=== PATIENT | female | born 1930 | race Caucasian/White ===

== ENCOUNTER 2016-07-22 16:32 | Inpatient (IN) | payer OTHER ==
[2016-07-22] MEDS ORDERED: D50W 25 GM/50 ML SYR IVP PRN (19:14)
[2016-07-22] MEDS ORDERED: ACETAMINOPHEN 325 MG TAB PO PRN (19:14)
[2016-07-22] MEDS ORDERED: ONDANSETRON 4 MG/2 ML VIAL IVP PRN (19:14)
--- NOTE | 2016-07-22 19:35 | GHP ---
[f rep st] HISTORY AND PHYSICAL DATE OF ADMISSION: 07/22/2016 CHIEF COMPLAINT: Chest pain and shortness of breath. HISTORY OF PRESENT ILLNESS: This is an 85-year-old female, with a history of nonobstructive coronar y artery disease by angiogram in 2009, diabetes, hypertension, hyperlipidemia, sick sinus syndrome w ith pacemaker, and obesity, who presented to [facility] today with chest pain and shor tness of breath. The patient states that after eating dinner last night she developed pain in her u pper back and a dull moderate pressure over her left chest. She denies any exacerbating or alleviat ing factors. It was associated with significant shortness of breath. The patient went to the emerg ency department today after her shortness of breath was not improving. Currently she is chest pain free. Her breathing has improved. PAST MEDICAL HISTORY: 1. Aortic stenosis. 2. Nonobstructive coronary artery disease by angiogram in 2009. 3. Diabetes mellitus. 4. Hyperlipidemia. 5. Hypertension. 6. Hypoxemia. 7. Pacemaker placement for sick sinus syndrome. 8. COPD. 9. Diverticulitis. 10. Chronic respiratory failure, on home O2. HOME MEDICATIONS: Reviewed, refer to [facility] for details. ALLERGIES: No known drug allergies. SOCIAL HISTORY: She denies any alcohol, tobacco, or illicit drug use. FAMILY HISTORY: Significant for arrhythmia in her mother. REVIEW OF SYSTEMS: A comprehensive 10-point review of systems was done and is negative, except for as mentioned in HPI. PHYSICAL EXAM: VITAL SIGNS: Blood pressure 159/54, pulse 66, respiratory rate 16, O2 saturation 10 0% on 3 L, temperature afebrile. GENERAL: In no acute distress. HEENT: Head normocephalic, atrau matic. Eyes are PERRLA, sclerae anicteric. Mouth, moist mucous membranes. NECK: Supple, no lymph adenopathy. CARDIOVASCULAR: S1, S2. There is a systolic murmur, right upper sternal border, 4/6. There is no JVD. PULMONARY: Lungs are clear. No wheezes, rales, or rhonchi. There are slight de creased breath sounds in bilateral bases. ABDOMEN: Soft, nontender, nondistended, no guarding or r ebound tenderness. Normoactive bowel sounds. EXTREMITIES: No clubbing or cyanosis. NEUROLOGIC: Cranial nerves II-XII grossly intact. No focal motor or sensory deficits. SKIN: Clear, no rashes. LABORATORY DATA: Diagnostics were reviewed that were done at [facility]. Sodium 145, potassium 4.1, chloride 101, CO2 of 29, BUN 18, creatinine 1.2, glucose 143, WBC is 8.8, hemoglobin 11.8, hematocrit 36.3, platelets 376. A troponin collected at 1514 on July 22, 2016 was less than 0.050. EKG that was done at an outside facility was visualized, and personally interpreted by myself, sinus rhythm, rate at 63 beats per minute. There is no ST-segment elevation or depression. A chest x-ray was done, however, I do not have the report of this. Preliminary report by the emerge ncy room physician revealed cardiomegaly with left basilar effusion and atelectasis versus consolida tion at the left base. ASSESSMENT AND PLAN: 1. This is an 85-year-old female, with known nonobstructive coronary artery disease, as well as mul tiple other risk factors for acute coronary syndrome, including diabetes, hypertension, dyslipidemia , who presents with chest pain that started last night and has since resolved. Plan: The patient w ill be placed on observation where we will cycle her troponin. I discussed the case with Myriam stark, from [facility], who will see her in consultation. 2. History of aortic stenosis with a systolic heart murmur. Plan: We will defer further workup to Cardiology. 3. History of diabetes mellitus. Plan: Continue home medications and monitor. 4. Acute on chronic respiratory failure. Plan: We will obtain a D-dimer since it does not appear like one was done at [facility], and consider further chest imaging as indicated. 5. We will also add a BNP to her workup, given her left-sided effusion and possible consolidation s een on her chest x-ray done at [facility]. /[id number]/MODL
[2016-07-22] MEDS ORDERED: OLOPATADINE 0.1% 5 ML OPHT.BTL EACHEYE SCH (21:00)
[2016-07-22] MEDS ORDERED: INSULIN GLARGINE 100 UNITS/ML SYRINGE SC SCH (21:00)
[2016-07-22] MEDS: OLOPATADINE 0.1% 5 ML OPHT.BTL EACHEYE SCH (21:43)
[2016-07-22] MEDS: LOSARTAN POTASSIUM 50 MG TAB PO SCH ×2 (21:44→21:50)
[2016-07-22] MEDS: NEBIVOLOL HCL 5 MG TAB PO SCH (21:44)
[2016-07-22] MEDS: BRIMONIDINE 0.1% 5 ML OPHT.BTL EACHEYE SCH (22:22)
[2016-07-22 23:52] LABS: TROPONIN I < 0.012 ng/mL (0-0.034)
[2016-07-23 05:00] LABS: % IMMATURE GRANULYOCYTES 0.4 % (0.0-1.1); ABSOLUTE IMMATURE GRANULOCYTES 0.03 10^3/uL (0.00-0.10); ADD DIFF? NO; ADD MORPH? NO; ADD SCAN? NO; ATYPICAL LYMPHOCYTE FLAG 0 (0-99); FRAGMENT RBC FLAG 0 (0-99); HEMATOCRIT 33.1 % (38.0-47.0); HEMOGLOBIN 10.6 g/dL (12.6-16.3); LEFT SHIFT FLG 10 (0-99); LIPEMIA HEMOLYSIS FLAG 80 (0-99); MEAN CELL VOLUME 93.8 fL (81.5-99.8); MEAN PLATELET VOLUME 9.9 fL (8.7-11.7); PLATELET CLUMPS FLAG 10 (0-99); PLATELET COUNT 295 10^3/uL (150-400); RED BLOOD CELL COUNT 3.53 10^6/uL (4.18-5.33); RED CELL DISTRIBUTION WIDTH 12.9 % (11.5-15.2)
[2016-07-23 05:29] LABS: ANION GAP 9 mEq/L (8-16); CARBON DIOXIDE 30 mEq/l (22-31); CHLORIDE 106 mEq/L (97-110); CREATININE 1.2 mg/dL (0.6-1.0); GLOMERULAR FILTRATION RATE 43; GLUCOSE 99 mg/dL (70-100); POTASSIUM 3.8 mEq/L (3.5-5.2); SODIUM 145 mEq/L (134-144)
[2016-07-23 05:38] LABS: TROPONIN I < 0.012 ng/mL (0-0.034)
[2016-07-23] MEDS: INSULIN LISPRO 100 UNIT/ML SC SCH ×3 (07:59→16:51)
[2016-07-23] MEDS: DILTIAZEM 60 MG TAB PO SCH (08:17)
[2016-07-23] MEDS: NATEGLINIDE 120 MG TAB PO SCH ×3 (08:17→17:21)
[2016-07-23] MEDS: ASPIRIN 81 MG CHEWABLE TAB PO SCH (08:18)
[2016-07-23] MEDS: MULTIVITAMINS 1 EACH TAB PO SCH (08:18)
[2016-07-23] MEDS: FUROSEMIDE 40 MG TAB PO SCH (08:19)
[2016-07-23] MEDS: CHOLECALCIFEROL VIT D3 2,000 UNITS TAB/CAP PO SCH (08:19)
[2016-07-23] MEDS: BRIMONIDINE 0.1% 5 ML OPHT.BTL EACHEYE SCH ×2 (08:22→21:00)
[2016-07-23] MEDS: OLOPATADINE 0.1% 5 ML OPHT.BTL EACHEYE SCH ×2 (08:45→21:17)
[2016-07-23] MEDS ORDERED: ASPIRIN EC 81 MG TAB PO SCH (09:00)
[2016-07-23] MEDS ORDERED: Herbals/Supplements -Info Only PO SCH (09:00)
--- NOTE | 2016-07-23 13:52 | GCON ---
[ rep st] CONSULTATION HISTORY OF PRESENT ILLNESS: I have been asked to do cardiovascular consultations on the patient for her shortness of breath. The patient is a very pleasant woman who has been having more shortness of breath than usual. She has interstitial lung disease and sees the pulmonary service, but for 3 to 4 days, she said she has had more shortness of breath. It has been particularly worse if she takes off her oxygen. She had some episodes where she felt like she really could not breathe very well on Wednesday and Wednesday, and now has finally come to the hospital on . The shortness of breath will come and go. She also has a diffuse chest discomfort that is at the sternal area up into the right chest and over to the left chest. It moves around, it is not exertional, it is not relieved with rest. It comes and goes when it wants to. It is not related to food or nausea, there are no associated symptoms of lightheadedness, dizziness, diaphoresis. This pain that she has is not pleuritic in nature. It is usually pretty brief is what she told me. She is a little insecure in her description of her symptoms and recommended that I speak to her daughter when her daughter eventually gets here, which I will be glad to do, and look forward to doing. What she told when she came into the hospital, to the admitting doctor, was that she had some pain in her upper back and some pressure in her left chest. When I talked to her, she said she just had some discomfort, not really pressure, into the left and right chest, but has no back pain. She was seen at [facility] and then made her way to [facility]. I am not sure exactly what happened, in terms of moving from 1 place to the other. She says she does not have fever, chills, or cough. She has a pulmonary appointment and sees her pulmonary doctors. She does not have childhood asthma. She does not have sputum production right now, she does, at times, have a chronic cough. She has no rashes, stiff neck, photophobia. She has not had nausea, vomiting or diarrhea. She has not had trauma of the head, neck, or chest recently. She has not had syncope or near syncope. She has no significant peripheral edema, or weight gain, or appetite loss. She has been taking her medications and doing a good job of trying to be very healthy and taking care of herself. CARDIAC RISK FACTORS: Positive for hypertension, diabetes mellitus, hyperlipidemia, obesity. Her cardiac risk factors are negative for hyperuricemia, known coronary disease, prior myocardial infarction, family history of premature coronary artery disease, or smoking history. PAST MEDICAL HISTORY: She has a coronary angiogram in 2009, which showed no high-grade stenosis at that time. She has a history of aortic stenosis and aortic regurgitation on her echocardiographic studies. She has a history of pulmonary hypertension and interstitial lung disease. She has diabetes mellitus , as noted above. She is overweight, as noted above. She has dyslipidemia. She has hypertension. SURGICAL HISTORY: Pacemaker for sick sinus syndrome. ALLERGIES: None. MEDICATIONS: Listed and not repeated. SOCIAL HISTORY: She was born in the [facility]. She lives with her , whom she has been with a long time, and who has had a big accident with a bleed in his brain, it sounds like, from what she is trying to describe to me. She is not exactly sure what to say the diagnosis was, but the net result is that he does not understand anything and can't communicate well, so her daughter has moved in. The daughter lives in [place] and the daughter is trying to get the family to think about moving closer to where the daughter lives. The patient herself tries to walk around, but she is limited by her lung disease. She is using oxygen at home. She does not smoke. She does not drink significant amounts of alcohol. PHYSICAL EXAMINATION: VITAL SIGNS: Blood pressure is 121/56 today, it was 148 when she came in, and then 172 this morning, and then 172 on repeat this morning. Her heart rate is 60. She has a pacemaker in place. Respiratory rate is 14 and is unlabored. She is afebrile. HEAD AND NECK: No tenderness or trauma. CARDIOVASCULAR: S1, S2, systolic ejection murmur 2nd right intercostal space up into the neck without delay or carotid upstroke. There is a distinct systolic flow murmur at the left lower sternal border. There is no S3, S4 or rubs present. She is regular. RESPIRATORY: Pulmonary exam reveals rhonchi bilaterally. No rales, wheezing, or dullness. ABDOMEN: Soft, nontender, without masses. CVA shows no tenderness. SKIN: Shows age-related changes. As I said, the pacemaker is in the left upper chest. NEUROLOGIC: Cranial nerves 2-12 are grossly intact. PSYCH: No obvious anxiety or depression. SKIN: Shows age-related changes. DIAGNOSTIC AND LABORATORY DATA: Her EKG notes a chest x-ray we do not have a copy of. Her sodium is 145, potassium 4.1, chloride 101, CO2 29, BUN 18, creatinine 1.2, glucose 143. White count 8.8, hematocrit 36.3, and platelets 376. Original troponin was less than 0.05. I cannot find her EKG right now. I guess it came over from [place] and is not available. We will keep looking for this, as well as order another EKG today. Same thing is true of the chest x -ray, it is not available to be observed right now, but is supposedly coming either in person or in report form. On 07/23, white count is 7.29, hematocrit is 33.1. D-dimer is 3.23, which is elevated and 2nd troponin is back at 0.012, which is negative and the BNP is 1650. ASSESSMENT AND PLAN: 1. Aortic stenosis. 2. Aortic insufficiency. 3. Shortness of breath. 4. Interstitial lung disease. 5. Coronary artery disease. 6. Elevated BNP. 7. Abnormal elevated D-dimer. 8. Hypertension. 9. Diabetes mellitus. 10. Dyslipidemia. 11. Social stressors due to her who is incapacitated after recent central nervous system bleed of some great significance. This is obviously very difficult for her. 12. Sick sinus syndrome with pacemaker. 13. We know she has coronary artery disease. 14. In 01/2010, her LAD showed a 60% eccentric aneurysmal lesion. The rest of her LAD had multiple, less than 15%, stenosis. Circumflex had no high-grade disease, and the right coronary was a small vessel. 15. We know that she has significant lung disease, as well, and she is being treated for that. 16. At this point in time, her D-dimer is elevated. I would recommend that we rule out pulmonary embolic disease first, and then we can look further for coronary disease, or worsening of her valvular heart disease. We will get an echocardiographic study. It does not appear that she has any significant aortic stenosis at this time. She does not have delayed carotid upstroke at all. We will watch her very closely. She does have moderate to severe aortic regurgitation. We will see if that has changed. With all this valvular heart disease, we always want to think about endocarditis , but there is nothing in her story that makes me think that is active in her current presentation. She may well have worsened heart failure at this time. I would repeat a chest x-ray unless we make a diagnosis of pulmonary embolic disease, rather than wait any longer to get the results from [facility]. If she has pulmonary embolic disease, we do not need to get further chest x-ray at this time. We can just treat her for pulmonary embolic disease and watch her closely. Will see what the echocardiographic study shows. She also could quite possibly have advanced coronary artery disease. If we are not sure what is going on, at some point, we could do a coronary angiogram and see if her significant left anterior descending lesion has gotten significantly worse. That angiogram was over 7 years ago and she has major risk factors for coronary artery disease, including her obesity, diabetes, hyperlipidemia, hypertension on top of the fact that we already know she has coronary disease. We will follow her closely with you. /[id number]/MODL MTDD
[2016-07-23] MEDS ORDERED: IOPAMIDOL (ISOVUE 370) 100 ML BTL IV ONE (14:15)
--- NOTE | 2016-07-23 14:58 | ECHO ---
[id number] + + [address] : : [place] [address] : : [phone] + Adult Echocardiographic Report + ------+ :Name: MARGOTH KOEHLER VStudy Date: 07/23/2016 01:47 PM : : Hospital Admission Number: [id number] Locatio n: 232: :: 1930 Gender: Female Height: 58 in : :Age: 85 yrs Race: WH Weight: 128 lb : :Reason For Study: Eval LV Fx : : BSA: 1.5 meters 2 : :History: SOB : + ------+ MMode/2D Measurements \T\ Calculations IVSd: 0.87 cm LVIDd: 5.4 cm FS: 38.8 % MV Diam: 3.0 cm LVPWd: 0.90 cm LVIDs: 3.3 cm EDV(Teich): 140.3 ml ESV(Teich): 43.9 ml EF(Teich): 68.7 % Ao root diam: 3.2 cm LVOT diam: 1.9 cm ACS: 0.94 cm LVOT area: 2.8 cm2 Normal Measurement Values: + + :LVIDd (3.5-5.7cm) IVSd (0.6-1.1cm) LVPWd (0.6-1.1cm) Aortic Root (2.0-3.7cm)Left Atrium (1.5-4.0cm): :LV Vol(d) (76-115ml) LV Vol(s) (29-48ml) Ejec Fraction (50-65%)PV Mitch (0.6- 1.2m/s) TV Mitch (0.4-1.0m/s) : :MV E Mitch (0.8-1.0m/s)MV A Mitch (0.3-1.0m/s)LVOT Mitch (0.7-1.2m/s) Asc Ao Mitch ( 0.9-1.8m/s) : + + Doppler Measurements \T\ Calculations MV E max mitch: MV V2 mean: MV P1/2t max mitch: Ao V2 max: 155.5 cm/sec 107.6 cm/sec 158.8 cm/sec 256.5 cm/sec MV A max mitch: MV mean PG: MV P1/2t: 114.3 msec Ao max P.1 cm/sec 4.9 mmHg 26.3 mmHg MV E/A: 1.0 MV V2 VTI: 67.1 cm MVA(P1/2t): 1.9 cm2 Ao mean PG: MV dec time: MV area (1 diam): MV dec slope: 13.2 mmHg 0.42 sec 406.9 cm/sec2 Ao V2 mean: 7.1 cm2 162.4 cm/sec MVA(VTI): 1.9 cm2 Ao V2 VTI: MV Flow area 57.2 cm (1diam): 7.1 cm2 VIN(I,D): 2.2 cm2 VIN(V,D): 2.1 cm2 AI max mitch: LV V1 max: SV(MV 1 diam): PA V2 max: 410.4 cm/sec 193.6 cm/sec 474.1 ml 88.2 cm/sec AI max PG: LV V1 max PG: SI(MV 1 diam): PA max P.4 mmHg 15.0 mmHg 314.6 ml/m2 3.1 mmHg AI dec slope: LV V1 mean PG: SV(LVOT): 127.3 ml 306.9 cm/sec2 6.6 mmHg AI P1/2t: LV V1 mean: 391.7 msec 111.8 cm/sec LV V1 VTI: 44.9 cm TR max mitch: RF(MV,Ao)(1 diam): 298.6 cm/sec 0.01 TR max PG: RF(MV,LVOT)(1diam): 35.7 mmHg 0.73 RAP systole: 5.0 mmHg RVSP(TR): 40.7 mmHg Left Ventricle The left ventricle is normal in size. There is normal left ventricular wall thickness. The left ventricular ejection fraction is normal. There is Doppler evidence for diastolic dysfunction. Ejection Fraction = 68%. The left ventricular wall motion is normal. Right Ventricle There is a pacemaker lead in the right ventricle. Atria The left atrium is mildly dilated. The right atrium is mildly dilated. Mitral Valve There is mild to moderate mitral annular calcification. There is mild mitral stenosis. There is trace mitral regurgitation. Tricuspid Valve There is trace tricuspid regurgitation. Right ventricular systolic pressure is 41mmHg. There is Doppler evidence for mild pulmonary hypertension. Aortic Valve There is moderate aortic valve calcification. The Ao V2 max is 2.6 m/sec and the Ao mean PG is 14 mmHg. Moderate to severe aortic regurgitation. Pulmonic Valve The pulmonic valve is normal in structure and function. There is no pulmonic valvular regurgitation. Great Vessels The aortic root is normal size. Pericardium/Pleural There is no pericardial effusion. Conclusion A complete two-dimensional transthoracic echocardiogram was performed (2D, M-mode, Doppler and color flow Doppler). The left ventricular ejection fraction is normal. There is Doppler evidence for diastolic dysfunction. Ejection Fraction = 68%. The left ventricular wall motion is normal. There is a pacemaker lead in the right ventricle. The left atrium is mildly dilated. The right atrium is mildly dilated. There is mild to moderate mitral annular calcification. There is mild mitral stenosis. There is trace mitral regurgitation. There is trace tricuspid regurgitation. Right ventricular systolic pressure is 41mmHg. There is Doppler evidence for mild pulmonary hypertension. There is moderate aortic valve calcification. The Ao V2 max is 2.6 m/sec and the Ao mean PG is 14 mmHg. Moderate to severe aortic regurgitation. There is no pericardial effusion. Final Reading Physician: Rosa Gutierrez signed on 07/23/2016 02:56 PM Ordering Physician: Danial Licea Performed By: Nicholas Dumont, CS
--- NOTE | 2016-07-23 16:49 | HOSPPROG ---
Hospitalist Progress Note Assessment/Plan: * CP/SOB -Ddimer positive - CTA negative -ECHO unchanged from previous - mild -check Lexiscan stress test in am as patient with persistent symptoms * DM II -Lantus * SSS/PCM - stable * COPD - home O2 Subjective: Still with CP/SOB when she walks Objective: Vital Signs Temp Pulse Resp BP Pulse Ox 36.6 C 60 17 121/56 H 98 07/23/16 04:00 07/23/16 11:56 07/23/16 11:56 07/23/16 11:56 07/23/16 11:56 Laboratory Results 07/23/16 04:32 07/23/16 04:32 07/22/16 07/23/16 07/24/16 05:59 05:59 05:59 Intake Total 220 Balance 220 d/w Dr. Licea - ECHO and CTA recommended ECHO - mild , no change from previous CTA - NO pe, no pNA - Physical Exam Constitutional: no apparent distress, appears nourished, not in pain Cardiovascular: regular rate and rhythym, no murmur, rub, or gallop Respiratory: no respiratory distress, no rales or rhonchi, clear to auscultation Gastrointestinal: normoactive bowel sounds, soft, non-tender abdomen, no palpable masses Skin: no rashes or abrasions, no fluctuance, no induration Neurologic: AAOx3, sensation intact bilaterally Psychiatric: interacting appropriately, not anxious, not encephalopathic, thought process linear ICD10 Worksheet Patient Problems: Problems Problem Status Onset Chest pain Acute - ICD10 Problem Qualifiers (1) Chest pain Qualifiers: Chest pain type: C Ischemic chest pain type: I
[2016-07-23] MEDS ORDERED: ASPIRIN EC 325 MG TAB PO ONE (17:01)
[2016-07-23] MEDS ORDERED: diphenhydrAMINE 25 MG CAP PO ONE (17:01)
[2016-07-23] MEDS ORDERED: DIAZEPAM 5 MG TAB PO ONE (17:01)
[2016-07-23] MEDS ORDERED: NITROGLYCERIN 0.4 MG BTL SL PRN (17:01)
[2016-07-23] MEDS ORDERED: ACETAMINOPHEN 325 MG TAB PO PRN (17:01)
[2016-07-23] MEDS ORDERED: TEMAZEPAM 15 MG CAP PO PRN (17:01)
[2016-07-23] MEDS: NEBIVOLOL HCL 5 MG TAB PO SCH (21:17)
[2016-07-24] MEDS: LOSARTAN POTASSIUM 50 MG TAB PO SCH ×2 (01:50→15:25)
[2016-07-24 06:08] LABS: ANION GAP 10 mEq/L (8-16); CALCIUM 9.3 mg/dL (8.5-10.4); CARBON DIOXIDE 31 mEq/l (22-31); CHLORIDE 102 mEq/L (97-110); CHOLESTEROL 215 mg/dL (140-220); CHOLESTEROL/HDL RATIO 7.41 RATIO (1.00-4.44); CREATININE 1.3 mg/dL (0.6-1.0); GLOMERULAR FILTRATION RATE 39; GLUCOSE 115 mg/dL (70-100); HIGH DENSITY LIPOPROTEIN 29 mg/dL (40-85); LDL/HDL RATIO 4.41 RATIO (1.00-3.22); LOW DENSITY LIPOPROTEIN 128 mg/dL (80-100); NON-HIGH DENSITY LIPOPROTEIN 186 mg/dL (90-129); POTASSIUM 4.3 mEq/L (3.5-5.2); SODIUM 143 mEq/L (134-144); TRIGLYCERIDE 292 mg/dL (35-135); VERY LOW DENSITY LIPOPROTEINS 58 mg/dL (8-25)
[2016-07-24] MEDS: INSULIN LISPRO 100 UNIT/ML SC SCH ×3 (08:37→17:35)
[2016-07-24 08:51] LABS: % IMMATURE GRANULYOCYTES 0.4 % (0.0-1.1); ABSOLUTE IMMATURE GRANULOCYTES 0.03 10^3/uL (0.00-0.10); ADD DIFF? NO; ADD MORPH? NO; ADD SCAN? NO; ATYPICAL LYMPHOCYTE FLAG 0 (0-99); FRAGMENT RBC FLAG 0 (0-99); HEMOGLOBIN 11.2 g/dL (12.6-16.3); LEFT SHIFT FLG 10 (0-99); LIPEMIA HEMOLYSIS FLAG 80 (0-99); MEAN CELL HEMOGLOBIN 29.6 pg (27.9-34.1); MEAN CELL VOLUME 92.6 fL (81.5-99.8); MEAN PLATELET VOLUME 9.7 fL (8.7-11.7); PLATELET CLUMPS FLAG 0 (0-99); PLATELET COUNT 307 10^3/uL (150-400); RED BLOOD CELL COUNT 3.78 10^6/uL (4.18-5.33); RED CELL DISTRIBUTION WIDTH 12.9 % (11.5-15.2)
[2016-07-24] MEDS ORDERED: DIAZEPAM 5 MG TAB PO ONE (09:00)
[2016-07-24] MEDS ORDERED: diphenhydrAMINE 25 MG CAP PO ONE (09:00)
[2016-07-24] MEDS ORDERED: ASPIRIN EC 325 MG TAB PO ONE (09:00)
[2016-07-24 09:25] LABS: INR 0.96 (0.83-1.16); PROTIME(PATIENT) 12.7 SEC (12.0-15.0)
[2016-07-24 09:26] LABS: APTT 29.5 SEC (23.0-38.0)
[2016-07-24] MEDS: BRIMONIDINE 0.1% 5 ML OPHT.BTL EACHEYE SCH (09:32)
[2016-07-24] MEDS: NATEGLINIDE 120 MG TAB PO SCH ×3 (09:33→17:32)
[2016-07-24] MEDS: OLOPATADINE 0.1% 5 ML OPHT.BTL EACHEYE SCH (09:40)
[2016-07-24] MEDS ORDERED: MIDAZOLAM 2 MG/2 ML VIAL ONE (10:02)
[2016-07-24] MEDS ORDERED: LIDOCAINE 1% 30 ML SDV ONE (10:02)
[2016-07-24] MEDS ORDERED: IOPAMIDOL (ISOVUE-370) 150 ML BTL IV ONE ×2 (10:02→11:01)
[2016-07-24] MEDS ORDERED: fentaNYL 100 MCG/2 ML INJ ONE (10:02)
[2016-07-24] MEDS ORDERED: ATROPINE SULFATE 1 MG/10 ML SYR IVP PRN (12:00)
[2016-07-24] MEDS ORDERED: OXYCODONE/APAP 5/325 TAB PO PRN (12:00)
[2016-07-24] MEDS ORDERED: HYDROCODONE/APAP 5/325 TAB PO PRN (12:00)
[2016-07-24] MEDS ORDERED: ONDANSETRON 4 MG/2 ML VIAL IVP PRN (12:00)
[2016-07-24] MEDS ORDERED: NITROGLYCERIN 0.4 MG BTL SL PRN (12:00)
[2016-07-24] MEDS: ASPIRIN 81 MG CHEWABLE TAB PO SCH (13:12)
[2016-07-24] MEDS: DILTIAZEM 60 MG TAB PO SCH (13:33)
[2016-07-24] MEDS: CHOLECALCIFEROL VIT D3 2,000 UNITS TAB/CAP PO SCH (13:34)
[2016-07-24] MEDS: FUROSEMIDE 40 MG TAB PO SCH (13:34)
[2016-07-24] MEDS: MULTIVITAMINS 1 EACH TAB PO SCH (13:34)
--- NOTE | 2016-07-24 13:36 | SOAPPROG ---
SOAP Progress Note Assessment/Plan: Assessment: 1. Coronary artery disease 2. Aortic stenosis 3. Aortic regurgitation 4. COPD 5. Chronic shortness of breath 6. Obesity 6. 7 dyslipidemia She is getting her chest discomfort. The cause is not clear. It may well be angina or proceed to coronary angiography. If her coronary arteries are no worse than they were 7 years ago that could be left with situation we do not know what caused her pain is. If she has coronary disease need to stent we will take care of that. she can lie perfectly flat she is not significantly fluid overloaded she has an elevated BNP. I do not think she has significant heart failure need treatment for that right at this time. She is good his systolic function. She does have diastolic dysfunction. We can follow this up as an outpatient. With her chest discomfort I do not believe it is due to her aortic stenosis because her aortic stenosis is very mild and she does not have significant left ventricular hypertrophy contributing to chest discomfort. I have answered all her questions and she would like to proceed with coronary angiography at this time. Her chest pain may be due to musculoskeletal issues as well. There is nothing to make us think at all that his pulmonary embolic disease given the evaluation she has had so far and story. Plan: 07/24/16 13:44 Subjective: She continues to have her chest pain mid simply. The discomfort is not typical for angina. Is occurring at rest. It goes away on its own. It is not brought on by exertion or stress. It is in the center of the chest it does radiate Around her chest. The pain is not associated with food or position. It is not worse with breathing. The pain overall is better than it was when she 1st came in. It comes on often O2 and she is just lying in bed. She has no significant shortness of breath. She can lie flat all night long. She does not need multiple pillows. She has no significant edema. She is not producing sputum. She has a chronic cough which is relatively unchanged. No fevers chills No nausea vomiting No lightheadedness dizziness fatigue. No palpitations. No near syncope. She has no upper respiratory tract symptoms. Objective: Vital Signs Temp Pulse Resp BP Pulse Ox 36.6 C 60 18 154/55 H 99 07/24/16 08:00 07/24/16 08:00 07/24/16 08:00 07/24/16 08:00 07/24/16 08:00 Laboratory Results 07/24/16 08:40 07/24/16 04:26 07/23/16 07/24/16 07/25/16 05:59 05:59 05:59 Intake Total 220 550 Balance 220 550 PT 12.7 SEC (12.0-15.0) 07/24/16 08:40 INR 0.96 (0.83-1.16) 07/24/16 08:40 Physical Exam - Physical Exam General Appearance: alert, no apparent distress Neck: supple Cardiac/Chest: regular rate, rhythm, systolic murmur (She has a systolic ejection murmur at the 2nd right intercostal space. It radiates to the neck but there is no delayed carotid upstroke.), No edema Abdomen: non-tender, soft, No organomegaly Skin: normal color Extremities: non-tender, No pedal edema, No calf tenderness Neuro/Psych: alert, normal mood/affect
[2016-07-24] MEDS ORDERED: ATORVASTATIN CALCIUM 40 MG TAB PO SCH (14:30)
--- NOTE | 2016-07-24 14:40 | PDIAF ---
- Diagnosis Diagnosis: chest pain Code Status: Do Not Resuscitate - Medication Management Discharge Medications: Medications to Continue on Transfer Aspirin [Aspirin 81mg (*)] 81 mg PO DAILY 07/22/16 [Last Taken Unknown] Brimonidine 0.1% [ALPHAGAN P 0.1% (*)] 1 drops EACHEYE BID 07/22/16 [Last Taken Unknown] Cholecalciferol Vit D3 [Vitamin D3 (*)] 2,000 units PO DAILY 07/22/16 [Last Taken Unknown] Diltiazem [Cardizem 60 MG (*)] 60 mg PO DAILY 07/22/16 [Last Taken Unknown] Furosemide [Lasix 40 MG (*)] 40 mg PO DAILY 07/22/16 [Last Taken Unknown] Herbals/Supplements -Info Only 1 ea PO DAILY 07/22/16 [Last Taken Unknown] Insulin Glargine [Lantus 100 UNITS/ML (*)] 39 units SC HS 07/22/16 [Last Taken 07/21/16] Losartan Potassium [Cozaar 50 mg (*)] 100 mg PO DAILY 07/22/16 [Last Taken Unknown] Multivitamins [Multivitamin (*)] 1 each PO DAILY 07/22/16 [Last Taken Unknown] Nateglinide [Starlix 120 mg (*)] 120 mg PO TID 07/22/16 [Last Taken Unknown] Nebivolol HCl [Bystolic 5 mg (*)] 10 mg PO HS 07/22/16 [Last Taken Unknown] Olopatadine 0.1% [Patanol 0.1%] 1 drop EACHEYE .[id number] 07/22/16 [ Last Taken Unknown] Atorvastatin Calcium [Lipitor 40 mg (*)] 40 mg PO DAILY #30 tab 07/24/16 [Last Taken Unknown] Sertraline HCl [Zoloft 25mg (*)] 25 mg PO DAILY #30 tab 07/24/16 [Last Taken Unknown] Discharge Medications: Refer to the Discharge Home Medication list for PRN reason. - Orders Services needed: Home Care, Physical Therapy, Occupational Therapy Home Care Face to Face: I certify that this patient was under my care and that I had the required [id number] encounter meeting the encounter requirements on the discharge day. My findings support the fact that the patient is homebound as defined in CMS Chapter 7 Medicare Benefits Manual 30.1.1, The condition of the patient is such that there exists a normal inability to leave home and consequently, leaving home would require a considerable and taxing effort. Diet Recommendation: ADA 2000 consistent carb - Follow Up Care Current Providers and Referrals: DR MAGO [Other]
--- NOTE | 2016-07-24 15:21 | CPIP ---
[f rep st] INVASIVE CARDIAC PROCEDURE PROCEDURE: 1. Left and right coronary arteriography. 2. Left heart catheterization. INDICATIONS: The patient has a history of known coronary artery disease and was admitted to the [facility] with worsening chest discomfort. She did not have an exercise tolerance test. She did not have heart failure. She was brought right to the laboratory analyst because of her known coronary disease and worsening symptoms. She was to the point where she was having symptoms at rest. PROCEDURE: 1. Left heart catheterization. 2. Right and left coronary arteriogram. FINDINGS: ANGIOGRAPHY: 1. Left main coronary artery is normal. 2. Left anterior descending artery has intimal disease present in the proximal segment. 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 It is very hard to asse ss exactly how high a degree the blockages are; it was called 50% in 2010, and I would say at this p oint, it is more like 65% to 70%. However, this is not clear. 3. The circumflex coronary artery has intimal disease present. There are no high-grade obstruction s in the circumflex. 4. The right coronary artery is a diminutive vessel. It is non dominant and has no high-grade obst ruction present. DISCUSSION: I have reviewed these films with the interventional service, and we have reviewed the o ld films from 2009. Where this patient's lesion is is not an easy place to fix, and it would be jamie y easy to hurt the patient a great deal. Also, we are not exactly sure the degree of stenosis and w ould require FFR or IVUS, and either procedure could be deadly in this patient. It certainly would easiest for us to make things worse, so my recommendation is we have ongoing medi lori therapy at this time. If she, over time, developed typical angina and medical therapy does not help, then further evaluation can be undertaken, but it may well be that her best option would be by pass surgery and not percutaneous intervention given the bend at her anatomy, the degree of her abno rmal vasculature, and aneurysmal dilatations. All her questions have been answered. COMPLICATIONS IN STUDY: None. BLOOD LOSS: 10 cc. /[id number]/MODL
[2016-07-24 16:30] VITALS: RESP 16
[2016-07-24 16:40] VITALS: PULSE 60; TEMP 98.1; O2SAT 97
--- NOTE | 2016-07-24 17:10 | GDS ---
[f rep st] DISCHARGE SUMMARY DISCHARGE DIAGNOSES: 1. Chest pain. 2. Coronary artery disease, with complex disease of the left anterior descending. 3. Chronic obstructive pulmonary disease, on home oxygen. 4. Diabetes type 2. 5. Sick sinus syndrome, status post pacemaker. 6. Anxiety. HISTORY: The patient is an 85-year-old female who presented with chest pain and shortness of breath . Her D-dimer was positive but CT angiogram of chest was negative for PE. She does have a history of mild aortic stenosis and repeat echocardiogram was done and unchanged from previous. This mild A S is not contributing to her symptoms. She does have a history of previous LAD stenosis, however, n ot enough to stent in the past. This was in 2009. Cardiology did bring [facility] to re-evaluate this lesion. Please refer to Dr. Licea' catheterization report which describes a 65% to 70% mid LAD lesion. She has aneurysmal dilatations with this. Dr. Licea felt this lesion, give n its only 65% to 70% stenosis and complex nature, that it would be very high risk to attempt a sten t. Bypass surgery would be an option but given her advanced age, she would probably not be a great candidate. Plan is for aggressive medical management. It is not clear whether or not her chest gabino n is due to anxiety or this lesion. It is probably more anxiety based. If she has ongoing chest pa in symptoms, nitrates could be attempted as an outpatient. DISCHARGE MEDICATIONS: Please see computer's record for full detailed list. New medications: Lipitor 40 mg p.o. daily. She has been on Zocor in the past and developed LFT brianna vation. They are agreeable to attempting Lipitor with close outpatient monitoring of LFTs. Zoloft 25 mg p.o. daily for anxiety and panic disorder which we feel is contributing to her presentation of chest pain and shortness of breath. ADDITIONAL DISCHARGE INSTRUCTIONS: Follow LFTs closely on Lipitor. Greater than 30 minutes' time was spent arranging this discharge. Patient seen and examined by me mely terrazas the day of discharge. /[id number]/MODL
[2016-07-24 17:26] VITALS: BP 123/44
== END 2016-07-24 18:50 | disposition home health service (06) | DRG 287 ==
LOC: F2W 18:12 → OBSVTOIN 07-23 16:46
PROVIDERS: ADMIT Family Medicine; ATTEND Family Medicine
DX: I25.10 Atherosclerotic heart disease of native coronary artery without angina pectoris (principal); J96.10 Chronic respiratory failure, unspecified whether with hypoxia or hypercapnia; J44.9 Chronic obstructive pulmonary disease, unspecified; E11.9 Type 2 diabetes mellitus without complications; F41.9 Anxiety disorder, unspecified; E78.5 Hyperlipidemia, unspecified; E66.9 Obesity, unspecified; Z95.0 Presence of cardiac pacemaker
CPT/HCPCS: G0378; G0379; J1644; J1815; J2250; J3010; Q9967

== ENCOUNTER → 2018-04-18 | Outpatient (CLI) | payer OTHER | LOC: BHCLAF 14:15 | PROVIDERS: ATTEND Internal Medicine Cardiovascular Disease | DX: I35.1 Nonrheumatic aortic (valve) insufficiency (principal); I25.10 Atherosclerotic heart disease of native coronary artery without angina pectoris; I10 Essential (primary) hypertension; I49.5 Sick sinus syndrome; Q25.3 Supravalvular aortic stenosis; E78.5 Hyperlipidemia, unspecified; Z95.0 Presence of cardiac pacemaker | CPT/HCPCS: 93005-PO ==